=== PATIENT | male | born 1965 | race Caucasian/White ===

== ENCOUNTER 2016-08-13 08:08 | Emergency (ER) | payer BC ==
[2016-08-13] MEDS ORDERED: LORazepam TAB(*) 1 MG PO ONE (08:29)
[2016-08-13] MEDS ORDERED: Ketorolac INJ* 60 MG/2 ML VIAL IM ONE (08:29)
[2016-08-13 08:43] VITALS: BP 175/98
--- NOTE | 2016-08-13 08:55 | UC ---
Back Pain HPI - HPI Summary HPI Summary: Awoke with sever back pain---slept on sofa last night--pain lateral right lumbar spine---muscle spasm - History of Current Complaint Chief Complaint: UCBackPain Stated Complaint: BACK PAIN Time Seen by Provider: 08/13/16 08:22 Hx Obtained From: Patient Onset/Duration: Sudden Onset, Lasting Hours - 2, Still Present Timing: Constant Severity Initially: Moderate Severity Currently: Moderate Pain Intensity: 7 Pain Scale Used: 0-10 Numeric Back Pain: Is Discrete @ - just to the right of the lumbar spine Character: Aching, Throbbing, Spasmodic, Stiffness Aggravating: Movement Alleviating: Position - inversion, exercise Associated Signs And Symptoms: Positive: Negative Related History: Previous Back Injury - gets muscle spasms - Allergies/Home Medications Allergies/Adverse Reactions: Allergies Allergy/AdvReac Type Severity Reaction Status Date / Time No Known Allergies Allergy Verified 08/13/16 08:27 Home Medications: Home Medications Metoprolol & Hydrochlorothiazi [Metoprolol/Hydrochlorothi 100-25 mg] 1 tab PO DAILY 08/13/16 [History Confirmed 08/13/16] PMH/Surg Hx/FS Hx/Imm Hx Previously Healthy: No Cardiovascular History: Hypertension GI/ History: Kidney Stones Psychological History: Depression - Surgical History Surgical History: Yes Surgery Procedure, Year, and Place: [facility]. APPENDIX - Family History Known Family History: Positive: None - Social History Occupation: Employed Full-time Lives: With Family Alcohol Use: None Substance Use Type: None Smoking Status (MU): Never Smoked Tobacco Review of Systems Constitutional: Negative Skin: Negative Eyes: Negative ENT: Negative Respiratory: Negative Cardiovascular: Negative Gastrointestinal: Negative Genitourinary: Negative Motor: Negative Neurovascular: Negative Musculoskeletal: Negative, Myalgia - right side of lumbar back Neurological: Negative Psychological: Negative All Other Systems Reviewed And Are Negative: Yes Physical Exam Triage Information Reviewed: Yes Appearance: Well-Appearing, Well-Nourished, Pain Distress Vital Signs: Initial Vital Signs Temp 97.6 F 08/13/16 08:29 Pulse 67 08/13/16 08:29 Resp 20 08/13/16 08:29 BP 175/98 08/13/16 08:29 Pulse Ox 100 08/13/16 08:29 Vital Signs Reviewed: Yes Eye Exam: Normal Eyes: Positive: Conjunctiva Clear ENT Exam: Normal ENT: Positive: Normal ENT inspection, Hearing grossly normal. Negative: Nasal congestion, Nasal drainage, Trismus, Muffled/hoarse voice Dental Exam: Normal Neck exam: Normal Neck: Positive: Supple, Nontender, No Lymphadenopathy Respiratory Exam: Normal Respiratory: Positive: Chest non-tender, Lungs clear, Normal breath sounds, No respiratory distress, No accessory muscle use Cardiovascular Exam: Normal Cardiovascular: Positive: RRR, No Murmur, Pulses Normal, Brisk Capillary Refill Abdominal Exam: Normal Abdomen Description: Positive: Nontender, No Organomegaly, Soft. Negative: CVA Tenderness (R), CVA Tenderness (L) Bowel Sounds: Positive: Present Musculoskeletal Exam: Normal Musculoskeletal: Positive: Strength Intact, ROM Intact, No Edema Neurological Exam: Normal Neurological: Positive: Alert, Muscle Tone Normal Psychological Exam: Normal Skin Exam: Normal Diagnostics - Radiology No standard instances Xray Interpretation: Positive (See Comments) - stranding right ureter---recent kidney stone vs infection right , stone .7 cm left kidney Radiology Interpretation Completed By: Radiologist Re-Evaluation - Re-Evaluation First Eval Change: Improved - pain resolved resting comfortably, pink, warm dry, no n/v Back Pain Course/Dx - Course Course Of Treatment: valium (muscle spasm) & Ibuprofen (pain) follow with urology for kidney stones, follow blood pressure with pcp - Differential Dx/Diagnosis Differential Diagnosis/HQI/PQRI: Renal Colic, Strain, Sprain Provider Diagnoses: Hematuria, renal colic, muscle spasm, Hypertension poor control Discharge - Discharge Plan Condition: Stable Disposition: HOME Prescriptions: Diazepam TAB(*) [Valium TAB(*)] 5 mg PO TID PRN #5 tab MDD 3 PRN Reason: muscle spasm Patient Education Materials: Kidney Stones (ED), DASH Eating Plan (ED), Hypertension (ED), Muscle Spasm (ED) Referrals: Rich Zuniga MD [Medical Doctor] - 3 Days Garrett Kenyon MD [Primary Care Provider] - 1 Week
--- NOTE | 2016-08-13 10:29 | RAD ---
INDICATION: Hematuria; RIGHT flank pain. History of urolithiasis. Post appendectomy. COMPARISON: No prior exams available on the [facility] for comparison. TECHNIQUE: Multidetector CT images were obtained from the lung bases to the ischial tuberosities. Evaluation of the viscera is limited without IV contrast. Multiplanar reformation. REPORT: Mild dependent subsegmental atelectasis at the visualized lung bases. Unremarkable unenhanced liver, gallbladder, pancreas, spleen. Unremarkable upper GI and small bowel. The appendix is not visualized consistent with surgical history. Mild colonic diverticulosis most prominent at the sigmoid colon without findings of diverticulitis. Negative for ascites, free air, hernias. Normal adrenal glands. No RIGHT intrarenal collecting system or ureteral stone or hydroureteronephrosis. Mild RIGHT perinephric and periureteral inflammatory stranding. 0.7 cm calyceal stone upper pole LEFT kidney. Negative for LEFT hydronephrosis. Mildly hyperdense 1.5 cm exophytic lesion at the midpole the LEFT kidney with a small peripheral calcification. Unremarkable partially distended urinary bladder. Symmetric seminal vesicles. Negative for lymphadenopathy. Mild calcific plaque of normal diameter abdominal aorta and iliac arteries. Physiologic distention of the IVC. 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 Polyarticular degenerative arthropathy. No suspicious focal osseous lesions evident. IMPRESSION: 1. While no RIGHT renal collecting system or ureteral stone is visualized and there is no hydroureteronephrosis there is mild perinephric and periureteral inflammatory stranding which may reflect recent stone passage. The stranding may also reflect nonobstructive pyelonephritis. 2. LEFT urolithiasis without hydronephrosis. 3. Colonic diverticulosis without findings of diverticulitis.
== END 2016-08-13 10:59 | disposition home or self-care (01) ==
LOC: UCEAST 08:08
DX: N20.0 Calculus of kidney (principal); R31.29 Other microscopic hematuria; M62.838 Other muscle spasm; I10 Essential (primary) hypertension
CPT/HCPCS: 74176; 81003; 87086; 93005; 99212; A9270-GY; G0463; J1885

== ENCOUNTER 2016-08-27 08:36 | Day surgery (SDC) | payer BC ==
--- NOTE | 2016-08-21 02:38 | HP ---
CC: Dr. Kenyon * ADMITTING HISTORY AND PHYSICAL: DATE OF ADMISSION: DATE OF OPERATION: 08/27/16 ADMITTING DIAGNOSIS: Left renal calculus. PLANNED PROCEDURE: Shock wave lithotripsy of left renal calculus. SURGEON: Dr. Arreola HISTORY OF PRESENT ILLNESS: Kole Drummond is a 51-year-old gentleman who had originally been evaluated for right-sided pain related to a stone that I suspect that he passed. At that time, an ultrasound was obtained, which revealed a 7.4 mm calculus in the upper pole of the left kidney and he desires treatment of the same. PAST MEDICAL HISTORY: Significant for: 1. Anxiety. 2. Hypertension. 3. Renal calculi. PAST SURGICAL HISTORY: Significant for: 1. Right inguinal hernia repair x2. 2. Appendectomy. MEDICATIONS ON ADMISSION: 1. Escitalopram 20 mg daily. 2. Metoprolol 12.5 mg daily. ALLERGIES: No known drug allergies. SOCIAL HISTORY: Smoking history, he is a nonsmoker. REVIEW OF SYSTEMS: He is otherwise in excellent health. There is no history of diabetes mellitus or any other major systemic illness. PHYSICAL EXAMINATION GENERAL: Reveals a pleasant healthy-appearing middle-aged gentleman. VITAL SIGNS: Blood pressure is 128/80. Pulse 67 per minute, regular. Temperature 98. Oxygen saturation 99% on room air. LUNGS: Clear bilaterally. CARDIOVASCULAR: Regular rate and rhythm; S1 and S2. ABDOMEN: Soft without masses IMPRESSION: A 51-year-old gentleman with a 7-mm calculus in the upper pole of the left kidney, who has been brought in for shock wave lithotripsy. I have discussed the procedure in detail including possible risks of bleeding, infection, incomplete fragmentation and possible injury to the kidney and he understands and wishes to proceed as planned. PLAN: Shock wave lithotripsy, left renal calculus. [id number]/[facility] #: [id number] BE
[~2016-08-27 08:36] MED LIST: Buffered Lidocaine 0.9% SYRIN* 5 ML/SYR SYRINGE INTRADERM ONE; Sodium Citrate/Citric Acid* 15 ML UDC PO ONE
[2016-08-27] MEDS ORDERED: Buffered Lidocaine 0.9% SYRIN* 5 ML/SYR SYRINGE ONE (08:56)
[2016-08-27] MEDS ORDERED: cefTRIAXone(*) 2 GM ADDV.VIAL IVPB ONE (08:56)
[2016-08-27] MEDS ORDERED: Sodium Citrate/Citric Acid* 15 ML UDC ONE (08:56)
--- NOTE | 2016-08-27 09:23 | RAD ---
HISTORY: Lithotripsy COMPARISONS: August 16, 2016 VIEWS: Frontal views of the abdomen. FINDINGS: BOWEL: There is a nonspecific bowel gas pattern, with nondilated small bowel gas noted. CALCULI: There is a calculus overlying the left renal parenchymal shadow measuring 0.6 cm in size. This is stable from the previous examination. BONES AND SOFT TISSUES: There is a scoliotic curvature of the spine. Degenerative changes are noted. OTHER FINDINGS: The lung bases are clear. There is no subphrenic gas. IMPRESSION: STABLE LEFT NEPHROLITHIASIS
[2016-08-27] MEDS ORDERED: fentaNYL* 50 MCG/ML 2 ML VIAL (100 MCG VIAL) ONE (10:08)
[2016-08-27] MEDS ORDERED: Midazolam* 1 MG/ML 5 ML VIAL (5 MG) ONE (10:08)
[2016-08-27] MEDS ORDERED: Furosemide IV* 10 MG/ML 2 ML VIAL (20 MG) ONE (10:15)
[2016-08-27 11:45] VITALS: BP 127/94
--- NOTE | 2016-08-28 03:59 | OP ---
CC: Garrett Kenyon MD; Gunner Arreola MD OPERATIVE SUMMARY: DATE OF OPERATION: 08/27/16 DATE OF : 63 SURGEON: Gunner Arreola MD ANESTHESIOLOGIST: Dr. Bolton. ANESTHESIA: Intravenous sedation. PRE-OP DIAGNOSIS: Left renal calculus. POST-OP DIAGNOSIS: Left renal calculus. OPERATIVE PROCEDURE: Shockwave lithotripsy of left renal calculus. COMPLICATIONS: None. POSTOPERATIVE CONDITION: Stable. INDICATIONS: Kole Drummond is a 51-year-old gentleman who was evaluated and noted to have 7 mm tanvir culus in the upper pole of the left kidney. He desires treatment of the same. I have discussed the procedure of lithotripsy along with possible risks of bleeding, infection, complete fragmentation, and possible injury to the kidney. He wishes to proceed with lithotripsy of the left renal calculus . DESCRIPTION OF PROCEDURE: After induction of intravenous sedation, the patient was placed on the thotripsy table in supine position. The calculus was identified using fluoroscopy. Shockwave litho tripsy was commenced at a rate of 90 shocks per minute. After the first few shocks, some ectopy was noted and the remainder of the lithotripsy was carried out in a coupled fashion. After the initial 350 shocks, there was a pause in lithotripsy for several minutes in an effort to minimize any poten tial trauma to the kidney. Lithotripsy was then resumed and a total of 1200 shocks were administere d and good fragmentation was observed. The patient tolerated the procedure satisfactorily and was t ransferred back to recovery area in stable condition. [id number]/[facility] #: [id number]
== END 2016-08-27 11:51 | disposition home or self-care (01) ==
LOC: OR 08:36
PROVIDERS: ATTEND Urology
DX: N20.0 Calculus of kidney (principal); I10 Essential (primary) hypertension
CPT/HCPCS: 74000; A9270-GY; J0696; J1940; J2250; J3010

== ENCOUNTER 2019-10-13 11:51 | Inpatient (IN) ==
[2019-10-13] MEDS ORDERED: NS 0.9% 1000 ml BAG 1,000 ML IV ONE (12:06)
[2019-10-13 12:21] LABS: Hematocrit 50 % (42-52); Hemoglobin 17.5 g/dL (14.0-18.0); Mean Corpuscular HGB Conc 35 g/dL (31-36); Mean Corpuscular Hemoglobin 30 pg (27-31); Mean Corpuscular Volume 87 fL (80-94); Mean Platelet Volume 9.1 fL (7.4-10.4); Platelet Count 197 10^3/uL (150-450); Red Blood Count 5.78 10^6 /uL (4.18-5.48); Red Cell Distribution Width 13 % (10-15); White Blood Count 5.5 10^3/uL (3.5-10.8)
[2019-10-13 12:33] LABS: INR 0.99 (0.82-1.09)
[2019-10-13 12:41] LABS: Troponin I 0.04 ng/mL (<0.03)
[2019-10-13 12:49] LABS: ALT 23 U/L (7-52); AST 18 U/L (13-39); Albumin 4.9 g/dL (3.2-5.2); Albumin/Globulin Ratio 1.8 (1-3); Alkaline Phosphatase 54 U/L (34-104); Anion Gap 8 mmol/L (2-11); BUN/Creatinine Ratio 23.7 (8-20); Blood Urea Nitrogen 23 mg/dL (6-24); CO2 Carbon Dioxide 27 mmol/L (22-32); Calcium 9.7 mg/dL (8.6-10.3); Chloride 103 mmol/L (101-111); EGFR African American 97.2 (>60); EGFR Non-African American 80.4 (>60); Globulin 2.8 g/dL (2-4); Glucose 116 mg/dL (70-100); Magnesium 2.2 mg/dL (1.9-2.7); Potassium 3.9 mmol/L (3.5-5.0); Sodium 138 mmol/L (135-145); Total Protein 7.7 g/dL (6.4-8.9)
[2019-10-13] MEDS ORDERED: Iodixanol (CONTRAST) 320 MG/ML 100 ML SDV IV ONE (12:51)
[2019-10-13 12:56] LABS: ABS Eosinophils 0.1 10^3/ul (0-0.6); ABS Lymphocytes 1.3 10^3/ul (1.0-4.8); ABS Monocytes 0.6 10^3/ul (0-0.8); ABS Neutrophils 3.5 10^3/ul (1.5-7.7); Eosinophil % 1.7 %; Lymphocyte % 22.8 %; Nucleated Red Blood Cells % 0.1
[2019-10-13 13:09] LABS: Alcohol, S < 10 mg/dL (<10)
[2019-10-13 13:20] LABS: TSH Ultra Thyroid Stim Horm 1.06 mcIU/mL (0.34-5.60)
[2019-10-13] MEDS ORDERED: Furosemide 40 mg/4 ml IV VIAL IV SLOW PU ONE (14:00)
[2019-10-13] MEDS ORDERED: Ondansetron 4 mg VIAL 2 MG/ML 2 ml VIAL IV PRN (14:01)
[2019-10-13] MEDS ORDERED: Perflutren Lipid Microsphere 3 ML VIAL ONE (14:54)
[2019-10-13 15:16] LABS: Troponin I 0.04 ng/mL (<0.03)
[2019-10-13 17:19] LABS: Troponin I 0.04 ng/mL (<0.03)
[2019-10-13 20:34] LABS: Troponin I 0.04 ng/mL (<0.03)
[2019-10-14 07:24] LABS: ABS Eosinophils 0.1 10^3/ul (0-0.6); ABS Lymphocytes 1.1 10^3/ul (1.0-4.8); ABS Monocytes 0.5 10^3/ul (0-0.8); ABS Neutrophils 3.4 10^3/ul (1.5-7.7); Eosinophil % 1.4 %; Hematocrit 46 % (42-52); Hemoglobin 16.3 g/dL (14.0-18.0); Lymphocyte % 21.8 %; Mean Corpuscular HGB Conc 35 g/dL (31-36); Mean Corpuscular Hemoglobin 30 pg (27-31); Mean Corpuscular Volume 86 fL (80-94); Platelet Count 179 10^3/uL (150-450); Red Blood Count 5.35 10^6 /uL (4.18-5.48); Red Cell Distribution Width 13 % (10-15); White Blood Count 5.2 10^3/uL (3.5-10.8)
[2019-10-14 07:34] LABS: BUN/Creatinine Ratio 23.8 (8-20); EGFR African American 92.8 (>60); EGFR Non-African American 76.7 (>60); HDL Cholesterol 34.7 mg/dL; Magnesium 2.3 mg/dL (1.9-2.7); Potassium 3.9 mmol/L (3.5-5.0)
[2019-10-14] MEDS ORDERED: Naloxone 0.4 mg VIAL 0.4 mg/ml 1 ml VIAL ONE (10:26)
[2019-10-14] MEDS ORDERED: fentaNYL 100 mcg/2 ml 50 MCG/ML VIAL ONE (10:26)
[2019-10-14] MEDS ORDERED: Midazolam 5 mg/5 ml VIAL 1 mg/ml 5 ml VIAL (5 mg) ONE (10:26)
[2019-10-14] MEDS ORDERED: Flumazenil 0.5 mg/5 ml 0.1 MG/ML 5 ml VIAL ONE (10:26)
[2019-10-14] MEDS ORDERED: diPHENhydraMINE IV 50 MG/ML 1 ml VIAL (BENADRYL) ONE (11:21)
[2019-10-16 06:46] LABS: BUN/Creatinine Ratio 25.3 (8-20); Calcium 9.1 mg/dL (8.6-10.3); EGFR African American 104.7 (>60); EGFR Non-African American 86.5 (>60); Magnesium 2.4 mg/dL (1.9-2.7); Potassium 3.9 mmol/L (3.5-5.0)
[2019-10-16] MEDS ORDERED: Perflutren Lipid Microsphere 3 ML VIAL ONE (10:16)
[2019-10-16] MEDS: Amiodarone 400 mg TAB PO SCH (20:20)
[2019-10-17 07:13] LABS: Hematocrit 46 % (42-52); Hemoglobin 16.3 g/dL (14.0-18.0); Mean Corpuscular HGB Conc 36 g/dL (31-36); Mean Corpuscular Hemoglobin 31 pg (27-31); Mean Corpuscular Volume 86 fL (80-94); Mean Platelet Volume 9.2 fL (7.4-10.4); Platelet Count 178 10^3/uL (150-450); Red Blood Count 5.32 10^6 /uL (4.18-5.48); Red Cell Distribution Width 13 % (10-15); White Blood Count 5.5 10^3/uL (3.5-10.8)
[2019-10-17 07:18] LABS: Anion Gap 6 mmol/L (2-11); BUN/Creatinine Ratio 19.8 (8-20); Blood Urea Nitrogen 18 mg/dL (6-24); CO2 Carbon Dioxide 27 mmol/L (22-32); Calcium 9.2 mg/dL (8.6-10.3); Chloride 105 mmol/L (101-111); EGFR African American 104.7 (>60); EGFR Non-African American 86.5 (>60); Glucose 88 mg/dL (70-100); Potassium 3.9 mmol/L (3.5-5.0); Sodium 138 mmol/L (135-145)
[2019-10-17 07:29] LABS: Troponin I 0.04 ng/mL (<0.03)
[2019-10-17] MEDS: Amiodarone 400 mg TAB PO SCH ×2 (09:05→20:19)
[2019-10-17 09:12] LABS: Magnesium 2.4 mg/dL (1.9-2.7)
[2019-10-18 06:47] LABS: BUN/Creatinine Ratio 18.7 (8-20); Calcium 9.2 mg/dL (8.6-10.3); EGFR African American 104.7 (>60); EGFR Non-African American 86.5 (>60); Magnesium 2.3 mg/dL (1.9-2.7); Potassium 3.9 mmol/L (3.5-5.0)
[2019-10-18] MEDS: Amiodarone 400 mg TAB PO SCH ×2 (08:10→20:11)
[2019-10-18] MEDS ORDERED: Potassium Chlor 10 meq TAB PO ONE (15:22)
[2019-10-19 07:38] LABS: BUN/Creatinine Ratio 18.4 (8-20); Calcium 9.4 mg/dL (8.6-10.3); EGFR African American 96.1 (>60); EGFR Non-African American 79.4 (>60); Magnesium 2.3 mg/dL (1.9-2.7); Potassium 3.9 mmol/L (3.5-5.0)
[2019-10-19] MEDS: Amiodarone 400 mg TAB PO SCH (12:54)
[2019-10-19 15:08] VITALS: BP 156/96
== END 2019-10-19 17:20 | disposition home or self-care (01) | DRG 201 ==
LOC: ED 11:51 → MEDTELE 11:51
PROVIDERS: ADMIT Internal Medicine; ATTEND Internal Medicine

== ENCOUNTER 2020-03-28 06:30 | Inpatient (IN) ==
[2020-03-28 10:26] LABS: BUN/Creatinine Ratio 19.8 (8-20); Calcium 9.3 mg/dL (8.6-10.3); EGFR African American 92.8 (>60); EGFR Non-African American 76.7 (>60); Magnesium 2.2 mg/dL (1.9-2.7)
[2020-03-29 07:27] LABS: BUN/Creatinine Ratio 20.6 (8-20); Calcium 9.2 mg/dL (8.6-10.3); EGFR African American 97.2 (>60); EGFR Non-African American 80.4 (>60); Magnesium 2.2 mg/dL (1.9-2.7)
[2020-03-30 08:14] LABS: BUN/Creatinine Ratio 22.1 (8-20); Calcium 9.3 mg/dL (8.6-10.3); EGFR African American 99.6 (>60); EGFR Non-African American 82.3 (>60); Magnesium 2.3 mg/dL (1.9-2.7)
[2020-03-30 12:58] VITALS: BP 104/98
== END 2020-03-30 13:00 | disposition home or self-care (01) | DRG 862 ==
LOC: MEDTELE 09:09
PROVIDERS: ADMIT Specialist; ATTEND Specialist